=== PATIENT | female | born 1935 | race Caucasian/White ===

== ENCOUNTER → 2017-02-16 | Outpatient (CLI) | payer OTHER, BC | LOC: BMCIMAGING 10:20 | PROVIDERS: ATTEND Surgery | DX: M81.8 Other osteoporosis without current pathological fracture (principal) ==

== ENCOUNTER → 2017-08-10 | Outpatient (CLI) | payer OTHER, BC | LOC: FIMAGING 10:00 | PROVIDERS: ATTEND Internal Medicine | DX: Z12.31 Encounter for screening mammogram for malignant neoplasm of breast (principal); Z80.3 Family history of malignant neoplasm of breast | CPT/HCPCS: G0202 ==

== ENCOUNTER → 2018-08-11 | Outpatient (CLI) | payer OTHER, BC | LOC: FIMAGING 14:17 | PROVIDERS: ATTEND Internal Medicine | DX: Z12.31 Encounter for screening mammogram for malignant neoplasm of breast (principal); Z80.3 Family history of malignant neoplasm of breast ==

== ENCOUNTER → 2018-11-17 | Outpatient (CLI) | payer OTHER, BC | LOC: FIMAGING 10:09 | PROVIDERS: ATTEND Internal Medicine | DX: N63.21 Unspecified lump in the left breast, upper outer quadrant (principal) ==

== ENCOUNTER 2019-02-01 19:34 | Emergency (ER) | payer OTHER, BC | END 2019-02-14 10:54 | disposition left against medical advice (07) | PROC: 0HQ0XZZ Repair Scalp Skin, External Approach (ICD-10-PCS; principal; 2019-02-01) | DX: S01.01XA Laceration without foreign body of scalp, initial encounter (principal); W01.190A Fall on same level from slipping, tripping and stumbling with subsequent striking against furniture, initial encounter; Y92.22 Religious institution as the place of occurrence of the external cause ==